=== PATIENT | female | born 1930 | race Caucasian/White ===

== ENCOUNTER 2017-05-29 14:31 | Inpatient (IN) | payer MEDICARE, MEDICAID ==
[~2017-05-29] VITALS: Ht 157.5 cm; Wt 84.8 kg
[~2017-05-29 14:31] MED LIST: AMLO2.5T PO; ASPI-605 PO; ATOR40TA PO; Docusate Sodium PO; ENOX40DI SQ; ESOM40CA PO; GABA-532 PO; METF500T4 PO; MONT10TA22 PO; RAMI10CA PO; SPIR25TA4 PO; TIMO5DRO18 EACHEYE
[2017-05-29 17:04] LABS: BASOPHILS % (AUTO) 0.3 % (0.0-2.0); EOSINOPHILS % (AUTO) 0.1 % (0.0-7.0); HEMATOCRIT 41.6 % (31.2-41.9); HEMOGLOBIN 13.9 g/dL (10.9-14.3); LYMPHOCYTES # (AUTO) 2.5 K/uL (20.0-40.0); LYMPHOCYTES % (AUTO) 18.6 % (20.5-51.5); MEAN CORPUSCULAR HGB CONC 34 g/dL (32.3-35.6); MEAN CORPUSCULAR VOLUME 86.7 fL (75.5-95.3); MONOCYTES # (AUTO) 1.1 K/uL (2.0-10.0); MONOCYTES % (AUTO) 8.5 % (0.0-11.0); NEUTROPHILS # (AUTO) 9.7 K/uL (1.8-8.9); NEUTROPHILS % (AUTO) 72.5 % (38.5-71.5); PLATELET COUNT (AUTO) 308 K/uL (179-408); WHITE BLOOD COUNT (AUTO) 13.4 K/uL (3.8-11.8)
[2017-05-29 17:19] LABS: ALANINE AMINOTRANSFERASE 22 U/L (14-59); ALKALINE PHOSPHATASE 73 U/L (50-136); ASPARTATE AMINOTRANSFERASE 9 U/L (15-37); BILIRUBIN,DIRECT 0.1 mg/dL (0.0-0.2); BILIRUBIN,TOTAL 0.3 mg/dL (0.2-1.0); CARBON DIOXIDE 30 mmol/L (21-32); CHLORIDE 104 mmol/L (98-107); CREATININE 1.5 mg/dL (0.6-1.3); GLUCOSE 128 mg/dL (74-106); TOTAL PROTEIN, SERUM 6.8 g/dL (6.4-8.2); UREA NITROGEN, BLOOD 30 mg/dL (7-18)
[2017-05-29] MEDS ORDERED: GUAI600T53 PO (17:26)
[2017-05-29] MEDS ORDERED: COLC0.6T67 PO (17:26)
[2017-05-29] MEDS ORDERED: CETI10TA14 PO (17:26)
[2017-05-29] MEDS ORDERED: FLUC100T8 PO (17:26)
[2017-05-29] MEDS ORDERED: PRED20TA PO (17:26)
[2017-05-29] MEDS ORDERED: FAMO40TA7 PO (17:26)
[2017-05-29] MEDS ORDERED: SERT25TA PO (17:26)
[2017-05-29] MEDS ORDERED: UMEC1BLS IH (17:26)
[2017-05-29] MEDS ORDERED: IPRA0.2S48 IH (17:26)
[2017-05-29] MEDS ORDERED: CLOP75TA15 PO (17:26)
[2017-05-29] MEDS ORDERED: MONT10TA22 PO (17:26)
[2017-05-29] MEDS ORDERED: CLOB15CR4 TP (17:26)
[2017-05-29] MEDS ORDERED: LEVO500T2 PO (17:26)
[2017-05-29] MEDS ORDERED: NEBI5TAB8 PO (17:26)
[2017-05-29] MEDS ORDERED: NYST5ORA PO (17:26)
[2017-05-29] MEDS ORDERED: IPRATROPIUM BROMIDE 0.5 MG/2.5 ML NEBU NEB ONE (18:21)
[2017-05-29] MEDS ORDERED: CEFTRIAXONE 1 G in IV DEXTROSE 5% 50 ML IV ONE (18:21)
[2017-05-29] MEDS ORDERED: methylPREDNISolone SOD SUCC 125 MG/2 ML VIAL IV ONE (18:21)
[2017-05-29] MEDS ORDERED: ALBUTEROL SULFATE 2.5 MG/ 0.5 ML NEBU NEB ONE (18:30)
[2017-05-29] MEDS ORDERED: CEFTRIAXONE 1 G VIAL ONE (18:45)
[2017-05-29] MEDS ORDERED: methylPREDNISolone SOD SUCC 125 MG/2 ML VIAL ONE (18:45)
[2017-05-29] MEDS ORDERED: IPRATROPIUM BROMIDE 0.5 MG/2.5 ML NEBU ONE (18:54)
[2017-05-29] MEDS ORDERED: ALBUTEROL SULFATE 2.5 MG/ 0.5 ML NEBU ONE (18:54)
--- NOTE | 2017-05-29 20:45 | NUR ---
Pt. admitted to TELE, under care of Dr. Mcgarry Belongs List completed
--- NOTE | 2017-05-29 20:55 | NUR ---
Received patient from ER via gurney, accompanied by granddaughter Mackenzie. Pt is alert, Andorran speaking, in no distress. Pt is admitted to tele under the care of Dr. Mcgarry. Dx: Pneumonia. Belonging list done. Admission process and care plan initiated. Safety measures in place, call light within reach. Will call MD for new admission orders. Addendum: 05/30/17 at 0443 by MAYDA SANDS RN Add: Patient's own medications accounted and placed in medication bag, will turn over to pharmacy when it opens at 0700 tomorrow.
[2017-05-29 21:37] VITALS: BP 144/61
[2017-05-29] MEDS ORDERED: DEXTROSE 50% 50 ML DISP.SYRIN IV PRN (23:15)
[2017-05-30 00:56] VITALS: BP 155/51
[2017-05-30 00:58] VITALS: BP 155/51
[2017-05-30 04:00] VITALS: BP 116/43
--- NOTE | 2017-05-30 06:00 | NUR ---
Pt is on tele sinus clifford/sinus rhythm mid 50's to low 60's. Lowest heart rate recorded at 45bpm but non sustained. Pt is in no distress.
--- NOTE | 2017-05-30 06:00 | NUR ---
Pt slept well, in no acute distress, no SOB, no c/o chest pain. Frequent productive cough noted. Accuchecks as ordered. Patient's own medications will be turned over to pharmacy, endorsed to day shift RN. Call light within reach, will continue to monitor.
[2017-05-30] MEDS: BLOOD SUGAR DIAGNOSTIC 1 EACH STRIP VI SCH ×4 (06:30→21:34)
--- NOTE | 2017-05-30 07:00 | NUR ---
RECEIVED REPORT FROM [facility] SHIFT NURSE, PATIENT IN BED ASLEEP, NO EVIDENCE OF DISTRESS NOTED AT THIS TIME, BED IN LOW POSITION, SIDE RAILS UP X2. BED ALARM ON.
[2017-05-30] MEDS: CLOPIDOGREL 75 MG TABLET PO SCH (09:02)
[2017-05-30] MEDS: SERTRALINE HCL 50 MG TABLET PO SCH (09:02)
[2017-05-30] MEDS: TIMOLOL MALEATE 0.5% OPHT DROP 5 ML BOTTLE EACHEYE SCH ×2 (09:02→21:13)
[2017-05-30] MEDS: MONTELUKAST SODIUM 10 MG TABLET PO SCH (09:02)
[2017-05-30] MEDS: INSULIN REGULAR, HUMAN 300 UNIT/3 ML VIAL SQ PRN ×3 (09:05→17:52)
[2017-05-30 11:19] VITALS: BP 114/47
[2017-05-30 11:36] LABS: *BILIRUBIN,URIN NEGATIVE (NEGATIVE); *BLOOD, URINE 1+ (NEGATIVE); *CLARITY,URINE TURBID (CLEAR); *COLOR,URINE LIGHT YELLOW (YELLOW); *KETONES,URINE NEGATIVE (NEGATIVE); *PROTEIN,URINE NEGATIVE (NEGATIVE); *UROBILINOGEN,URINE 0.2 E.U./dl (NORMAL); LEUKOCYTE ESTERASE ,URINE 3+ (NEGATIVE); NITRITE, URINE NEGATIVE (NEGATIVE); PH,URINE 6.5 (5.0-8.0); UGLUCOSE NEGATIVE (NEGATIVE)
[2017-05-30] MEDS ORDERED: MORPHINE SULFATE 4 MG/1 ML DISP.SYRIN IV PRN (12:15)
[2017-05-30] MEDS ORDERED: ALBUTEROL SULFATE 2.5 MG/3 ML NEBU NEB PRN (12:15)
[2017-05-30] MEDS ORDERED: ACETAMINOPHEN 325 MG TABLET PO PRN (12:15)
[2017-05-30] MEDS ORDERED: ONDANSETRON 4 MG/2 ML VIAL IV PRN (12:15)
[2017-05-30 12:21] LABS: BACTERIA,URINE FEW /HPF (NONE SEEN); WBC,URINE 50-80 /HPF (0-3)
[2017-05-30 12:22] LABS: SQUAMOUS EPITHELIAL CELL,UR MANY /HPF (NONE SEEN); TRANSITIONAL EPI CELLS,URINE MODERATE /LPF (NONE SEEN)
[2017-05-30] MEDS: AZITHROMYCIN IV 500 MG in IV DEXTROSE 5% 250 ML IV SCH (14:06)
[2017-05-30 15:52] VITALS: BP 131/48
--- NOTE | 2017-05-30 18:50 | NUR ---
Patient has been compliant with care today. She is transferring from bed to chair with assistance and makes needs known. Good consumption of meals, and glucose levels are mildly rising. Patient is in chair at this time, no evidence of distress noted, call light in reach.
[2017-05-30 20:00] VITALS: BP 146/39
[2017-05-30] MEDS: DOCUSATE SODIUM 100 MG CAPSULE PO SCH (21:12)
[2017-05-30] MEDS: NYSTATIN SUSPENSION 5 ML LIQUID UDC PO SCH (21:12)
[2017-05-30] MEDS: CEFTRIAXONE 1 G in IV DEXTROSE 5% 50 ML IV SCH (21:12)
[2017-05-31 06:02] VITALS: BP 134/59
[2017-05-31] MEDS: PANTOPRAZOLE SODIUM 40 MG TABLET.DR PO SCH (06:29)
[2017-05-31] MEDS: BLOOD SUGAR DIAGNOSTIC 1 EACH STRIP VI SCH ×4 (06:35→20:48)
--- NOTE | 2017-05-31 06:41 | NUR ---
Patient slept well, in no distress. No significant change of condition throughout the shift. Assisted patient with toileting needs, all needs met. Safety measures in place, call light within reach.
--- NOTE | 2017-05-31 07:13 | NUR ---
RECEIVED REPORT FROM [employer] OPERATOR NURSE, PATIENT IN BED ASLEEP, NO EVIDENCE OF DISTRESS NOTED, BED IN LOW POSITION, SIDE RAILS UP X2. BED ALARM ON.
[2017-05-31 07:25] LABS: IRON, SERUM 83 ug/dL (50-175)
[2017-05-31 07:33] LABS: BASOPHILS % (AUTO) 0.1 % (0.0-2.0); EOSINOPHILS % (AUTO) 0.2 % (0.0-7.0); HEMATOCRIT 39.5 % (31.2-41.9); HEMOGLOBIN 13.1 g/dL (10.9-14.3); LYMPHOCYTES # (AUTO) 2.7 K/uL (20.0-40.0); LYMPHOCYTES % (AUTO) 21.8 % (20.5-51.5); MEAN CORPUSCULAR HEMOGLOBIN 28.7 uug (24.7-32.8); MEAN CORPUSCULAR HGB CONC 33 g/dL (32.3-35.6); MEAN CORPUSCULAR VOLUME 86.5 fL (75.5-95.3); MONOCYTES # (AUTO) 0.9 K/uL (2.0-10.0); MONOCYTES % (AUTO) 7.1 % (0.0-11.0); NEUTROPHILS # (AUTO) 8.7 K/uL (1.8-8.9); NEUTROPHILS % (AUTO) 70.8 % (38.5-71.5); PLATELET COUNT (AUTO) 304 K/uL (179-408); RED BLOOD CELL COUNT(AUTO) 4.56 MIL/uL (3.63-4.92); WHITE BLOOD COUNT (AUTO) 12.3 K/uL (3.8-11.8)
[2017-05-31 07:40] LABS: ALANINE AMINOTRANSFERASE 21 U/L (14-59); ALKALINE PHOSPHATASE 65 U/L (50-136); BILIRUBIN,TOTAL 0.4 mg/dL (0.2-1.0); CARBON DIOXIDE 29 mmol/L (21-32); CHLORIDE 102 mmol/L (98-107); CHOLESTEROL 121 mg/dL (<200); CREATININE 1.2 mg/dL (0.6-1.3); GLUCOSE 118 mg/dL (74-106); HDL CHOLESTEROL 55 mg/dL (40-60); MAGNESIUM 1.7 mg/dL (1.8-2.4); PHOSPHOROUS 3.4 mg/dL (2.5-4.9); POTASSIUM 4.1 mmol/L (3.5-5.1); THYROID STIMULATING HORMONE 0.711 mIU/mL (0.358-3.740); TOTAL PROTEIN, SERUM 5.9 g/dL (6.4-8.2); TRIGLYCERIDES 123 MG/DL (30-150); UREA NITROGEN, BLOOD 28 mg/dL (7-18)
[2017-05-31 08:08] LABS: ASPARTATE AMINOTRANSFERASE 14 U/L (15-37)
[2017-05-31] MEDS: MONTELUKAST SODIUM 10 MG TABLET PO SCH (09:21)
[2017-05-31] MEDS: SERTRALINE HCL 50 MG TABLET PO SCH (09:21)
[2017-05-31] MEDS: CLOPIDOGREL 75 MG TABLET PO SCH (09:22)
[2017-05-31] MEDS: TIMOLOL MALEATE 0.5% OPHT DROP 5 ML BOTTLE EACHEYE SCH ×2 (09:22→20:51)
[2017-05-31] MEDS: NYSTATIN SUSPENSION 5 ML LIQUID UDC PO SCH ×4 (09:22→20:40)
[2017-05-31 11:26] VITALS: BP 100/46
[2017-05-31] MEDS ORDERED: MAGNESIUM OXIDE 400 MG TABLET PO ONE (11:45)
[2017-05-31] MEDS: AZITHROMYCIN IV 500 MG in IV DEXTROSE 5% 250 ML IV SCH (13:05)
[2017-05-31 13:28] LABS: *CREATININE,URINE 38.7 mg/dL (30-125); *URINE TOTAL PROTEIN RANDOM 23.1 mg/dL (<150/24HR)
[2017-05-31 15:12] VITALS: BP 92/45
--- NOTE | 2017-05-31 17:42 | NUR ---
PATIENT HAS BEEN COMPLIANT WITH CARE, CURRENTLY UP IN CHAIR, NO EVIDENCE OF DISTRESS NOTED. PATIENT REQUESTS WARM WATER SEVERAL TIMES A DAY AND CALLS FOR [facility] TENDER WITH AMBULATION TO RESTROOM. PATIENT REPORTS FEELING BETTER TODAY. URINE CLEAN CATCH STILL PENDING AT THIS TIME ORDERS WERE PLACED AFTER PATIENT HAD URINATED.
[2017-05-31 20:00] VITALS: BP 116/67
--- NOTE | 2017-05-31 20:30 | NUR ---
patient up to chair,no respiratory distress, patient has been coughing productively,R.T. give breathing treatment,warm water given per patient requested,daughter at bedside,no SOB noted,o2 sat97% in room air.
[2017-05-31] MEDS: CEFTRIAXONE 1 G in IV DEXTROSE 5% 50 ML IV SCH (20:39)
[2017-05-31] MEDS: DOCUSATE SODIUM 100 MG CAPSULE PO SCH (20:40)
[2017-05-31] MEDS: INSULIN REGULAR, HUMAN 300 UNIT/3 ML VIAL SQ PRN (20:51)
[2017-05-31] MEDS: ALBUTEROL SULFATE 2.5 MG/3 ML NEBU NEB PRN (21:13)
[2017-06-01 05:57] VITALS: BP 111/51
--- NOTE | 2017-06-01 06:00 | NUR ---
PATIENT ABLE TO SLEEP FOR 4-5 HRS ,COUGH IMPROVED,ROBITUSSIN DM 10 ML GIVEN.
[2017-06-01] MEDS: BLOOD SUGAR DIAGNOSTIC 1 EACH STRIP VI SCH ×2 (06:33→11:57)
[2017-06-01] MEDS: PANTOPRAZOLE SODIUM 40 MG TABLET.DR PO SCH (06:34)
[2017-06-01] MEDS: GUAIFENESIN/DEXTROMETHORPHAN 5 ML UDC PO PRN ×2 (06:40→13:41)
[2017-06-01] MEDS ORDERED: GUAIFENESIN/DEXTROMETHORPHAN 5 ML UDC ONE (06:55)
--- NOTE | 2017-06-01 08:00 | NUR ---
Awake, alert oriented x 4, Uzbek speaking, understands simple Pashto, STANDING ROCK, blind. Pleasant, assisted with ADL, then sitting on the chair
[2017-06-01] MEDS: NYSTATIN SUSPENSION 5 ML LIQUID UDC PO SCH ×2 (08:46→13:39)
[2017-06-01] MEDS: TIMOLOL MALEATE 0.5% OPHT DROP 5 ML BOTTLE EACHEYE SCH (08:46)
[2017-06-01] MEDS: CLOPIDOGREL 75 MG TABLET PO SCH (08:46)
[2017-06-01] MEDS: SERTRALINE HCL 50 MG TABLET PO SCH (08:46)
[2017-06-01] MEDS: MONTELUKAST SODIUM 10 MG TABLET PO SCH (08:46)
[2017-06-01 08:49] LABS: BASOPHILS % (AUTO) 0.2 % (0.0-2.0); EOSINOPHILS # (AUTO) 0.1 K/uL (0.0-0.7); EOSINOPHILS % (AUTO) 0.7 % (0.0-7.0); HEMATOCRIT 44.7 % (31.2-41.9); HEMOGLOBIN 14.6 g/dL (10.9-14.3); LYMPHOCYTES # (AUTO) 3.3 K/uL (20.0-40.0); LYMPHOCYTES % (AUTO) 28.1 % (20.5-51.5); MEAN CORPUSCULAR HEMOGLOBIN 28.4 uug (24.7-32.8); MEAN CORPUSCULAR HGB CONC 33 g/dL (32.3-35.6); MEAN CORPUSCULAR VOLUME 86.8 fL (75.5-95.3); MONOCYTES # (AUTO) 0.7 K/uL (2.0-10.0); NEUTROPHILS # (AUTO) 7.7 K/uL (1.8-8.9); PLATELET COUNT (AUTO) 276 K/uL (179-408); RED BLOOD CELL COUNT(AUTO) 5.15 MIL/uL (3.63-4.92); WHITE BLOOD COUNT (AUTO) 11.9 K/uL (3.8-11.8)
[2017-06-01 08:58] LABS: CARBON DIOXIDE 30 mmol/L (21-32); CHLORIDE 100 mmol/L (98-107); CREATININE 1.2 mg/dL (0.6-1.3); GLUCOSE 107 mg/dL (74-106); PHOSPHOROUS 3.4 mg/dL (2.5-4.9); POTASSIUM 4.1 mmol/L (3.5-5.1); UREA NITROGEN, BLOOD 28 mg/dL (7-18)
--- NOTE | 2017-06-01 11:00 | NUR ---
Assisted by PT, ambulating in the hallway.
[2017-06-01 11:09] VITALS: BP 101/44
[2017-06-01] MEDS: AZITHROMYCIN IV 500 MG in IV DEXTROSE 5% 250 ML IV SCH (13:39)
[2017-06-01] MEDS ORDERED: FOSFOMYCIN TROMETHAMINE 3 GM PACKET PO ONE (14:15)
[2017-06-01] MEDS ORDERED: LINEZOLID 600 MG TABLET PO SCH (14:15)
[2017-06-01] MEDS ORDERED: ACETYLCYSTEINE 10% 4ML VIAL NEB ONE (14:49)
[2017-06-01] MEDS ORDERED: GUAIFENESIN LA 600 MG TABLET.SA PO SCH (15:00)
[2017-06-01] MEDS ORDERED: NITROFURANTOIN/NITROFURAN MAC 100 MG CAPSULE PO SCH (15:00)
[2017-06-01 15:19] VITALS: BP_SYST 101; BP_SYST 116; BP_DIAS 44; BP_DIAS 51
[2017-06-01] MEDS: ALBUTEROL SULFATE 2.5 MG/3 ML NEBU NEB PRN (15:28)
[2017-06-01] MEDS ORDERED: LEVO500T2 PO (16:08)
[2017-06-01] MEDS ORDERED: NITR100C6 PO (16:08)
[2017-06-01] MEDS ORDERED: NEOMY/BACITRAC/POLYMI OINT 28.35 GM TUBE TOP SCH (17:00)
--- NOTE | 2017-06-01 17:05 | NUR ---
With discharge order to Assisted living, arranged with [facility]. Prescription and DC instruction given to daughter Melissa, verbalized understanding. Saline lock removed. Own medications returned. Went home per wheelchair in fair condition not in distress, afebrile.
--- NOTE | 2017-06-01 17:09 | NUR ---
Patient is discharged to home with home health continued with [facility]
[2017-06-01] MEDS ORDERED: LACTOBACILLUS RHAMNOSUS GG 1 EACH CAPSULE PO SCH (21:00)
== END 2017-06-01 17:00 | disposition home health service (06) | DRG 871 ==
LOC: ER 14:32 → TELE 20:42 → MED 05-30 11:00
PROVIDERS: ADMIT Internal Medicine; ATTEND Internal Medicine
DX: A41.9 Sepsis, unspecified organism (principal); J15.9 Unspecified bacterial pneumonia; N17.0 Acute kidney failure with tubular necrosis; E44.0 Moderate protein-calorie malnutrition; E11.42 Type 2 diabetes mellitus with diabetic polyneuropathy; D68.59 Other primary thrombophilia; B37.0 Candidal stomatitis; J44.0 Chronic obstructive pulmonary disease with (acute) lower respiratory infection; J45.901 Unspecified asthma with (acute) exacerbation; N39.0 Urinary tract infection, site not specified; E11.65 Type 2 diabetes mellitus with hyperglycemia; B95.2 Enterococcus as the cause of diseases classified elsewhere; Z79.84 Long term (current) use of oral hypoglycemic drugs; Z79.52 Long term (current) use of systemic steroids; Z79.82 Long term (current) use of aspirin; K21.9 Gastro-esophageal reflux disease without esophagitis; Z68.34 Body mass index [BMI] 34.0-34.9, adult; Z86.73 Personal history of transient ischemic attack (TIA), and cerebral infarction without residual deficits; H54.7 Unspecified visual loss; Z74.09 Other reduced mobility; I11.9 Hypertensive heart disease without heart failure; Z79.899 Other long term (current) drug therapy; K43.9 Ventral hernia without obstruction or gangrene; Z88.0 Allergy status to penicillin
CPT/HCPCS: 36415; 70030-TC; 71045; 83550; 83605; 83735; 84100; 84156; 84300; 84443; 85025; 85730; 87040; 87077; 87086; 87400; 93005; 93307; 94640; 94664; A4663; J0456; J0696; J1815; J2930; J3490; J3590; J7060

== ENCOUNTER 2018-12-01 19:59 | Inpatient (IN) | payer MEDICARE, MEDICAID ==
[~2018-12-01] VITALS: Ht 170.2 cm; Wt 82.6 kg
[~2018-12-01 19:59] MED LIST changes: -AMLO2.5T PO; -ASPI-605 PO; -ATOR40TA PO; +CETI10TA14 PO; +CLOB15CR4 TP; +CLOP75TA15 PO; +COLC0.6T67 PO; -Docusate Sodium PO; -ENOX40DI SQ; +IPRA0.2S48 IH; +LEVO500T2 PO; +METF-440 PO; -METF500T4 PO; +NEBI5TAB8 PO; +NITR100C6 PO; +NYST5ORA PO; +PRED20TA PO; -RAMI10CA PO; +SERT25TA PO; -SPIR25TA4 PO; +UMEC1BLS IH
[2018-12-01 20:43] LABS: BASOPHILS # (AUTO) 0.1 K/uL (0.0-8.0); BASOPHILS % (AUTO) 0.6 % (0.0-2.0); EOSINOPHILS # (AUTO) 0.1 K/uL (0.0-0.7); EOSINOPHILS % (AUTO) 1.4 % (0.0-7.0); HEMATOCRIT 39.5 % (31.2-41.9); LYMPHOCYTES # (AUTO) 2.7 K/uL (20.0-40.0); MEAN CORPUSCULAR HEMOGLOBIN 28.2 uug (24.7-32.8); MEAN CORPUSCULAR HGB CONC 33 g/dL (32.3-35.6); MEAN CORPUSCULAR VOLUME 85.5 fL (75.5-95.3); MONOCYTES # (AUTO) 0.6 K/uL (2.0-10.0); MONOCYTES % (AUTO) 6.5 % (0.0-11.0); NEUTROPHILS # (AUTO) 5.8 K/uL (1.8-8.9); NEUTROPHILS % (AUTO) 62.5 % (38.5-71.5); PLATELET COUNT (AUTO) 279 K/uL (179-408); RED BLOOD CELL COUNT(AUTO) 4.62 MIL/uL (3.63-4.92); WHITE BLOOD COUNT (AUTO) 9.3 K/uL (3.8-11.8)
[2018-12-01 20:50] LABS: CARBON DIOXIDE 29 mmol/L (21-32); CHLORIDE 107 mmol/L (98-107); CREATININE 1.2 mg/dL (0.6-1.3); GLUCOSE 113 mg/dL (74-106); POTASSIUM 4.2 mmol/L (3.5-5.1); UREA NITROGEN, BLOOD 22 mg/dL (7-18)
[2018-12-01 21:18] LABS: BILIRUBIN,DIRECT 0.1 mg/dL (0.0-0.2); BILIRUBIN,TOTAL 0.3 mg/dL (0.2-1.0); TOTAL PROTEIN, SERUM 6.1 g/dL (6.4-8.2)
[2018-12-01 21:22] LABS: *BILIRUBIN,URIN NEGATIVE (NEGATIVE); *BLOOD, URINE NEGATIVE (NEGATIVE); *CLARITY,URINE CLEAR (CLEAR); *KETONES,URINE NEGATIVE (NEGATIVE); *UROBILINOGEN,URINE 0.2 E.U./dl (NORMAL); LEUKOCYTE ESTERASE ,URINE NEGATIVE (NEGATIVE); NITRITE, URINE NEGATIVE (NEGATIVE); PH,URINE 5.5 (5.0-8.0); UGLUCOSE NEGATIVE (NEGATIVE)
[2018-12-01 21:28] LABS: *COLOR,URINE LIGHT YELLOW (YELLOW)
[2018-12-01] MEDS ORDERED: LORAZEPAM 2 MG/1 ML VIAL IV ONE (21:30)
[2018-12-01] MEDS ORDERED: PROCHLORPERAZINE EDISYLATE 10 MG/2 ML VIAL IV ONE (21:30)
[2018-12-01] MEDS ORDERED: PROCHLORPERAZINE EDISYLATE 10 MG/2 ML VIAL ONE (21:40)
[2018-12-01] MEDS ORDERED: LORAZEPAM 2 MG/1 ML VIAL ONE (21:41)
[2018-12-01] MEDS ORDERED: INSULIN REGULAR, HUMAN 300 UNIT/3 ML VIAL SQ PRN (23:00)
[2018-12-01] MEDS ORDERED: ONDANSETRON 4 MG/2 ML VIAL IV PRN (23:00)
[2018-12-01] MEDS ORDERED: HYDROCODONE/APAP 5-325MG TABLET PO PRN (23:00)
[2018-12-01] MEDS ORDERED: Z GUARD REMEDY PASTE 57 GM TUBE TOP PRN (23:00)
[2018-12-01] MEDS ORDERED: DEXTROSE 50% 50 ML DISP.SYRIN IV PRN (23:00)
[2018-12-01] MEDS ORDERED: ASPIRIN 81 MG TAB.CHEW PO ONE (23:00)
[2018-12-01] MEDS ORDERED: ACETAMINOPHEN 325 MG TABLET PO PRN (23:00)
[2018-12-01] MEDS ORDERED: ASPIRIN 81 MG TAB.CHEW ONE (23:07)
[2018-12-02 00:03] VITALS: BP 167/59
[2018-12-02] MEDS: IV NS 1000 ML 1,000 ML IV PRN ×2 (01:23→18:08)
[2018-12-02 04:00] VITALS: BP 125/62
[2018-12-02 06:32] LABS: BASOPHILS % (AUTO) 0.4 % (0.0-2.0); EOSINOPHILS # (AUTO) 0.2 K/uL (0.0-0.7); EOSINOPHILS % (AUTO) 2.2 % (0.0-7.0); HEMATOCRIT 38.6 % (31.2-41.9); HEMOGLOBIN 12.7 g/dL (10.9-14.3); LYMPHOCYTES # (AUTO) 2.3 K/uL (20.0-40.0); LYMPHOCYTES % (AUTO) 32.2 % (20.5-51.5); MEAN CORPUSCULAR HEMOGLOBIN 28.1 uug (24.7-32.8); MEAN CORPUSCULAR HGB CONC 33 g/dL (32.3-35.6); MEAN CORPUSCULAR VOLUME 85.5 fL (75.5-95.3); MONOCYTES # (AUTO) 0.6 K/uL (2.0-10.0); MONOCYTES % (AUTO) 8.3 % (0.0-11.0); NEUTROPHILS % (AUTO) 56.9 % (38.5-71.5); PLATELET COUNT (AUTO) 272 K/uL (179-408); RED BLOOD CELL COUNT(AUTO) 4.52 MIL/uL (3.63-4.92); WHITE BLOOD COUNT (AUTO) 7.1 K/uL (3.8-11.8)
[2018-12-02 06:33] LABS: CARBON DIOXIDE 28 mmol/L (21-32); CHLORIDE 108 mmol/L (98-107); CREATININE 1.1 mg/dL (0.6-1.3); GLUCOSE 115 mg/dL (74-106); POTASSIUM 4.2 mmol/L (3.5-5.1); UREA NITROGEN, BLOOD 19 mg/dL (7-18)
[2018-12-02 06:38] LABS: MAGNESIUM 1.5 mg/dL (1.8-2.4); PHOSPHOROUS 3.5 mg/dL (2.5-4.9)
[2018-12-02 06:46] LABS: ALANINE AMINOTRANSFERASE 10 U/L (14-59); ALKALINE PHOSPHATASE 53 U/L (50-136); ASPARTATE AMINOTRANSFERASE 6 U/L (15-37); BILIRUBIN,TOTAL 0.4 mg/dL (0.2-1.0); TOTAL PROTEIN, SERUM 5.6 g/dL (6.4-8.2)
[2018-12-02 07:27] LABS: THYROID STIMULATING HORMONE 2.815 mIU/mL (0.358-3.740)
[2018-12-02] MEDS: BLOOD SUGAR DIAGNOSTIC 1 EACH STRIP VI SCH ×4 (07:40→21:03)
[2018-12-02 09:22] VITALS: BP 149/50
[2018-12-02] MEDS: ASPIRIN 81 MG TAB.CHEW PO SCH (09:29)
[2018-12-02 11:06] VITALS: BP 111/54
[2018-12-02] MEDS ORDERED: AMLO5TAB9 PO (11:46)
[2018-12-02] MEDS ORDERED: AMLO2.5T4 PO (11:46)
[2018-12-02] MEDS ORDERED: OLOP2.5D5 OP (11:46)
[2018-12-02] MEDS ORDERED: LIDOC TOP (11:46)
[2018-12-02] MEDS ORDERED: TIMO5DRO18 EACHEYE (11:46)
[2018-12-02] MEDS ORDERED: FAMO40TA7 PO (11:46)
[2018-12-02] MEDS ORDERED: FURO-152 PO (11:46)
[2018-12-02] MEDS ORDERED: TOBR5DRO48 EACHEYE (11:46)
[2018-12-02] MEDS ORDERED: DEXL60CA3 PO (11:46)
[2018-12-02] MEDS ORDERED: NYST15PO4 TP (11:46)
[2018-12-02] MEDS ORDERED: AZEL137S7 BNOSTRILS (11:46)
[2018-12-02] MEDS ORDERED: DICL100G16 TP (11:46)
[2018-12-02] MEDS ORDERED: ALBU18HF2 INH (11:46)
[2018-12-02] MEDS: MAGNESIUM SULFATE/D5W 100 ML IV SCH ×2 (12:00→13:23)
[2018-12-02] MEDS: GABAPENTIN 100 MG CAPSULE PO SCH ×2 (13:46→17:42)
[2018-12-02] MEDS: FUROSEMIDE 20 MG TABLET PO SCH (13:46)
[2018-12-02] MEDS: CLOPIDOGREL 75 MG TABLET PO SCH (13:46)
[2018-12-02] MEDS: MONTELUKAST SODIUM 10 MG TABLET PO SCH (13:46)
[2018-12-02 15:09] VITALS: BP 146/81
[2018-12-02] MEDS: TIMOLOL MALEATE 0.5% OPHT DROP 5 ML BOTTLE EACHEYE SCH ×2 (15:12→20:59)
[2018-12-02] MEDS: METFORMIN HCL 500 MG TABLET PO SCH (17:41)
[2018-12-02 20:00] VITALS: BP 108/72
[2018-12-02] MEDS: ATORVASTATIN 10 MG TABLET PO SCH (20:58)
[2018-12-02] MEDS: NYSTATIN POWDER 15 GM BOTTLE TOP SCH (20:58)
[2018-12-03 04:58] VITALS: BP 141/61
[2018-12-03] MEDS: BLOOD SUGAR DIAGNOSTIC 1 EACH STRIP VI SCH ×4 (05:57→20:46)
[2018-12-03 06:40] LABS: CARBON DIOXIDE 29 mmol/L (21-32); CHLORIDE 105 mmol/L (98-107); GLUCOSE 124 mg/dL (74-106); MAGNESIUM 1.6 mg/dL (1.8-2.4); PHOSPHOROUS 3.3 mg/dL (2.5-4.9); UREA NITROGEN, BLOOD 19 mg/dL (7-18)
[2018-12-03 06:57] LABS: BASOPHILS % (AUTO) 0.3 % (0.0-2.0); EOSINOPHILS # (AUTO) 0.4 K/uL (0.0-0.7); EOSINOPHILS % (AUTO) 3.6 % (0.0-7.0); HEMATOCRIT 39.4 % (31.2-41.9); HEMOGLOBIN 12.9 g/dL (10.9-14.3); LYMPHOCYTES # (AUTO) 2.3 K/uL (20.0-40.0); MEAN CORPUSCULAR HEMOGLOBIN 28.1 uug (24.7-32.8); MEAN CORPUSCULAR HGB CONC 33 g/dL (32.3-35.6); MONOCYTES # (AUTO) 0.8 K/uL (2.0-10.0); MONOCYTES % (AUTO) 7.5 % (0.0-11.0); NEUTROPHILS # (AUTO) 6.7 K/uL (1.8-8.9); NEUTROPHILS % (AUTO) 65.6 % (38.5-71.5); PLATELET COUNT (AUTO) 275 K/uL (179-408); RED BLOOD CELL COUNT(AUTO) 4.58 MIL/uL (3.63-4.92); WHITE BLOOD COUNT (AUTO) 10.2 K/uL (3.8-11.8)
[2018-12-03] MEDS: IV NS 1000 ML 1,000 ML IV PRN (07:54)
[2018-12-03] MEDS: CETIRIZINE HCL 10 MG TABLET PO SCH (08:42)
[2018-12-03] MEDS: MONTELUKAST SODIUM 10 MG TABLET PO SCH (08:42)
[2018-12-03] MEDS: CLOPIDOGREL 75 MG TABLET PO SCH (08:42)
[2018-12-03] MEDS: METFORMIN HCL 500 MG TABLET PO SCH ×2 (08:42→17:45)
[2018-12-03] MEDS: AMLODIPINE 5 MG TABLET PO SCH (08:46)
[2018-12-03] MEDS: FUROSEMIDE 20 MG TABLET PO SCH (08:47)
[2018-12-03] MEDS: ASPIRIN 81 MG TAB.CHEW PO SCH (08:47)
[2018-12-03] MEDS: NYSTATIN POWDER 15 GM BOTTLE TOP SCH (08:50)
[2018-12-03] MEDS: TIMOLOL MALEATE 0.5% OPHT DROP 5 ML BOTTLE EACHEYE SCH ×2 (09:51→20:46)
[2018-12-03 11:10] VITALS: BP 154/66
[2018-12-03] MEDS ORDERED: PANTOPRAZOLE SODIUM 40 MG VIAL IV SCH (12:45)
[2018-12-03] MEDS: MAGNESIUM SULFATE/D5W 100 ML IV SCH ×2 (12:48→14:32)
[2018-12-03] MEDS: FAMOTIDINE. 20 MG/2 ML VIAL IV SCH ×2 (12:48→20:46)
[2018-12-03 15:21] VITALS: BP 114/49
[2018-12-03] MEDS: CLOTRIMAZOLE 1% CREAM 30 GM TUBE TOP SCH (17:46)
[2018-12-03 20:12] VITALS: BP 118/69
[2018-12-03] MEDS: ATORVASTATIN 10 MG TABLET PO SCH (20:46)
[2018-12-03] MEDS ORDERED: INSULIN REGULAR, HUMAN 300 UNIT/3 ML VIAL SQ PRN (21:00)
[2018-12-04 05:06] VITALS: BP 130/65
[2018-12-04] MEDS ORDERED: INSULIN REGULAR, HUMAN 300 UNIT/3 ML VIAL SQ PRN (06:00)
[2018-12-04 06:37] LABS: BASOPHILS # (AUTO) 0.1 K/uL (0.0-8.0); BASOPHILS % (AUTO) 0.7 % (0.0-2.0); EOSINOPHILS # (AUTO) 0.4 K/uL (0.0-0.7); EOSINOPHILS % (AUTO) 4.5 % (0.0-7.0); HEMATOCRIT 42.7 % (31.2-41.9); HEMOGLOBIN 13.9 g/dL (10.9-14.3); LYMPHOCYTES # (AUTO) 1.9 K/uL (20.0-40.0); LYMPHOCYTES % (AUTO) 20.2 % (20.5-51.5); MEAN CORPUSCULAR HEMOGLOBIN 27.9 uug (24.7-32.8); MEAN CORPUSCULAR HGB CONC 33 g/dL (32.3-35.6); MEAN CORPUSCULAR VOLUME 85.5 fL (75.5-95.3); MONOCYTES # (AUTO) 0.9 K/uL (2.0-10.0); MONOCYTES % (AUTO) 8.9 % (0.0-11.0); NEUTROPHILS # (AUTO) 6.3 K/uL (1.8-8.9); NEUTROPHILS % (AUTO) 65.7 % (38.5-71.5); PLATELET COUNT (AUTO) 239 K/uL (179-408); RED BLOOD CELL COUNT(AUTO) 4.99 MIL/uL (3.63-4.92); WHITE BLOOD COUNT (AUTO) 9.5 K/uL (3.8-11.8)
[2018-12-04] MEDS: BLOOD SUGAR DIAGNOSTIC 1 EACH STRIP VI SCH ×5 (06:45→20:42)
[2018-12-04] MEDS: IV NS 1000 ML 1,000 ML IV PRN (06:53)
[2018-12-04 06:57] LABS: CARBON DIOXIDE 29 mmol/L (21-32); CHLORIDE 107 mmol/L (98-107); CREATININE 1.1 mg/dL (0.6-1.3); GLUCOSE 116 mg/dL (74-106); MAGNESIUM 1.9 mg/dL (1.8-2.4); PHOSPHOROUS 3.1 mg/dL (2.5-4.9); POTASSIUM 4.3 mmol/L (3.5-5.1); UREA NITROGEN, BLOOD 19 mg/dL (7-18)
[2018-12-04] MEDS: MONTELUKAST SODIUM 10 MG TABLET PO SCH (08:02)
[2018-12-04] MEDS: FAMOTIDINE. 20 MG/2 ML VIAL IV SCH (08:02)
[2018-12-04] MEDS: CLOPIDOGREL 75 MG TABLET PO SCH (08:02)
[2018-12-04] MEDS: METFORMIN HCL 500 MG TABLET PO SCH ×2 (08:05→17:50)
[2018-12-04] MEDS: AMLODIPINE 5 MG TABLET PO SCH (08:05)
[2018-12-04] MEDS: ASPIRIN 81 MG TAB.CHEW PO SCH (08:05)
[2018-12-04] MEDS: FUROSEMIDE 20 MG TABLET PO SCH (08:05)
[2018-12-04] MEDS: CETIRIZINE HCL 10 MG TABLET PO SCH (08:05)
[2018-12-04] MEDS: TIMOLOL MALEATE 0.5% OPHT DROP 5 ML BOTTLE EACHEYE SCH ×2 (08:31→20:39)
[2018-12-04] MEDS: CLOTRIMAZOLE 1% CREAM 30 GM TUBE TOP SCH ×2 (08:35→17:33)
[2018-12-04] MEDS: ALBUTEROL SULFATE 1.25 MG/3 ML NEBU NEB PRN ×3 (08:39→23:11)
[2018-12-04] MEDS: IPRATROPIUM BROMIDE 0.5 MG/2.5 ML NEBU NEB PRN ×3 (08:39→23:11)
[2018-12-04 08:47] VITALS: BP 155/67
[2018-12-04 11:07] VITALS: BP 125/51
[2018-12-04 15:34] VITALS: BP 141/61
[2018-12-04 20:18] VITALS: BP 111/57
[2018-12-04] MEDS: ATORVASTATIN 10 MG TABLET PO SCH (20:21)
[2018-12-04] MEDS: FAMOTIDINE 20 MG TABLET PO SCH (20:21)
[2018-12-04] MEDS: MAG HYDROX/AL HYDROX/SIMETH 30 ML LIQUID UDC PO PRN (21:07)
[2018-12-05] MEDS: ALBUTEROL SULFATE 1.25 MG/3 ML NEBU NEB PRN (04:41)
[2018-12-05] MEDS: IPRATROPIUM BROMIDE 0.5 MG/2.5 ML NEBU NEB PRN (04:43)
[2018-12-05 05:05] VITALS: BP 140/50
[2018-12-05 05:49] LABS: BASOPHILS # (AUTO) 0.1 K/uL (0.0-8.0); BASOPHILS % (AUTO) 0.7 % (0.0-2.0); EOSINOPHILS # (AUTO) 0.5 K/uL (0.0-0.7); EOSINOPHILS % (AUTO) 5.5 % (0.0-7.0); HEMATOCRIT 39.4 % (31.2-41.9); HEMOGLOBIN 12.9 g/dL (10.9-14.3); LYMPHOCYTES # (AUTO) 2.1 K/uL (20.0-40.0); LYMPHOCYTES % (AUTO) 22.4 % (20.5-51.5); MEAN CORPUSCULAR HEMOGLOBIN 28.1 uug (24.7-32.8); MEAN CORPUSCULAR HGB CONC 33 g/dL (32.3-35.6); MEAN CORPUSCULAR VOLUME 85.8 fL (75.5-95.3); MONOCYTES # (AUTO) 0.9 K/uL (2.0-10.0); MONOCYTES % (AUTO) 9.9 % (0.0-11.0); NEUTROPHILS # (AUTO) 5.8 K/uL (1.8-8.9); NEUTROPHILS % (AUTO) 61.5 % (38.5-71.5); PLATELET COUNT (AUTO) 252 K/uL (179-408); WHITE BLOOD COUNT (AUTO) 9.4 K/uL (3.8-11.8)
[2018-12-05] MEDS: BLOOD SUGAR DIAGNOSTIC 1 EACH STRIP VI SCH ×3 (06:32→16:40)
[2018-12-05 08:00] VITALS: BP 133/55
[2018-12-05] MEDS: CETIRIZINE HCL 10 MG TABLET PO SCH (08:11)
[2018-12-05] MEDS: METFORMIN HCL 500 MG TABLET PO SCH (08:11)
[2018-12-05] MEDS: CLOPIDOGREL 75 MG TABLET PO SCH (08:11)
[2018-12-05] MEDS: FAMOTIDINE 20 MG TABLET PO SCH (08:11)
[2018-12-05] MEDS: MONTELUKAST SODIUM 10 MG TABLET PO SCH (08:11)
[2018-12-05] MEDS: AMLODIPINE 5 MG TABLET PO SCH (08:12)
[2018-12-05] MEDS: CLOTRIMAZOLE 1% CREAM 30 GM TUBE TOP SCH ×2 (08:12→17:04)
[2018-12-05] MEDS: TIMOLOL MALEATE 0.5% OPHT DROP 5 ML BOTTLE EACHEYE SCH (08:12)
[2018-12-05 08:57] LABS: CREATININE 1.1 mg/dL (0.6-1.3); MAGNESIUM 1.7 mg/dL (1.8-2.4); PHOSPHOROUS 3.7 mg/dL (2.5-4.9)
[2018-12-05 08:58] LABS: CARBON DIOXIDE 28 mmol/L (21-32); CHLORIDE 104 mmol/L (98-107); GLUCOSE 116 mg/dL (74-106); POTASSIUM 4.5 mmol/L (3.5-5.1); UREA NITROGEN, BLOOD 20 mg/dL (7-18)
[2018-12-05] MEDS ORDERED: FUROSEMIDE 20 MG/2 ML VIAL IV ONE (09:00)
[2018-12-05 11:09] VITALS: BP 138/66
[2018-12-05] MEDS ORDERED: MAGNESIUM SULFATE/D5W 100 ML IV SCH (13:00)
[2018-12-05 15:16] VITALS: BP 138/66
[2018-12-05 15:17] VITALS: BP 132/57
[2018-12-05 15:30] VITALS: BP 140/88
[2018-12-05] MEDS: MAG HYDROX/AL HYDROX/SIMETH 30 ML LIQUID UDC PO PRN (16:40)
[2018-12-05] MEDS ORDERED: METF-440 PO (17:15)
[2018-12-05] MEDS ORDERED: MONT10TA22 PO (17:15)
[2018-12-05] MEDS ORDERED: CETI10TA14 PO (17:15)
[2018-12-05] MEDS ORDERED: CLOT30CR24 TOP (17:15)
[2018-12-05] MEDS ORDERED: AMLO5TAB9 PO (17:15)
[2018-12-05] MEDS ORDERED: GABA-532 PO (17:15)
[2018-12-05] MEDS ORDERED: FAMO20TA8 PO (17:15)
[2018-12-05] MEDS ORDERED: FURO20TA4 PO (17:15)
[2018-12-06] MEDS ORDERED: FUROSEMIDE 20 MG TABLET PO SCH (09:00)
== END 2018-12-05 18:15 | DRG 291 ==
LOC: ER 19:59 → TELE3 23:38 → MEDSURG3 12-02 10:17
PROVIDERS: ADMIT Nurse Practitioner Acute Care; ATTEND Nurse Practitioner Acute Care
DX: I11.0 Hypertensive heart disease with heart failure (principal); G93.41 Metabolic encephalopathy; E44.0 Moderate protein-calorie malnutrition; D68.59 Other primary thrombophilia; I50.33 Acute on chronic diastolic (congestive) heart failure; R53.1 Weakness; R26.2 Difficulty in walking, not elsewhere classified; Z86.73 Personal history of transient ischemic attack (TIA), and cerebral infarction without residual deficits; E78.5 Hyperlipidemia, unspecified; E11.42 Type 2 diabetes mellitus with diabetic polyneuropathy; E11.65 Type 2 diabetes mellitus with hyperglycemia; E66.9 Obesity, unspecified; Z68.34 Body mass index [BMI] 34.0-34.9, adult; R40.2142 Coma scale, eyes open, spontaneous, at arrival to emergency department; R40.2362 Coma scale, best motor response, obeys commands, at arrival to emergency department; R40.2252 Coma scale, best verbal response, oriented, at arrival to emergency department; Z74.09 Other reduced mobility; Z79.84 Long term (current) use of oral hypoglycemic drugs; Z79.02 Long term (current) use of antithrombotics/antiplatelets; K21.9 Gastro-esophageal reflux disease without esophagitis; G93.89 Other specified disorders of brain; K43.9 Ventral hernia without obstruction or gangrene; J45.909 Unspecified asthma, uncomplicated; I70.0 Atherosclerosis of aorta; H54.8 Legal blindness, as defined in USA
CPT/HCPCS: 36415; 70030-TC; 70450; 71045; 83690; 83735; 84100; 84443; 85025; 85651; 85730; 87086; 92526; 92610; 93005; 93307; 94640; 94664; 97110; 97116; 97165; 97530; A4663; C1758; G0378; J0780; J1815; J1940; J2060; J3475; J3490; J3590; J7030

== ENCOUNTER 2018-12-05 18:27 | Inpatient (IN) | payer MEDICARE, MEDICAID ==
[~2018-12-05] VITALS: Ht 170.2 cm; Wt 82.6 kg
[~2018-12-05 18:27] MED LIST changes: +ALBU18HF2 INH; +AMLO2.5T4 PO; +AMLO5TAB9 PO; +AZEL137S7 BNOSTRILS; +CLOT30CR24 TOP; +DEXL60CA3 PO; +DICL100G16 TP; +FAMO20TA8 PO; +FAMO40TA7 PO; +FURO-152 PO; +FURO20TA4 PO; +LIDOC TOP; +NYST15PO4 TP; +OLOP2.5D5 OP; +TOBR5DRO48 EACHEYE
[2018-12-05 18:56] VITALS: BP 141/54
[2018-12-05] MEDS ORDERED: METFORMIN HCL 500 MG TABLET PO ONE (20:00)
[2018-12-05] MEDS ORDERED: GABAPENTIN 100 MG CAPSULE PO ONE (20:00)
[2018-12-05] MEDS ORDERED: GABAPENTIN 100 MG CAPSULE ONE (20:47)
[2018-12-05] MEDS ORDERED: FAMOTIDINE 20 MG TABLET PO ONE (21:00)
[2018-12-05] MEDS: FAMOTIDINE 20 MG TABLET PO SCH (21:00)
[2018-12-05 21:16] VITALS: BP 104/68
[2018-12-06] MEDS: ALBUTEROL SULFATE 1.25 MG/3 ML NEBU NEB PRN ×2 (04:11→22:00)
[2018-12-06] MEDS: IPRATROPIUM BROMIDE 0.5 MG/2.5 ML NEBU NEB PRN ×2 (04:11→21:59)
[2018-12-06 04:40] VITALS: BP 117/50
[2018-12-06 08:05] VITALS: BP 101/46
[2018-12-06] MEDS: FUROSEMIDE 20 MG TABLET PO SCH (08:32)
[2018-12-06] MEDS: METFORMIN HCL 500 MG TABLET PO SCH ×2 (08:32→16:58)
[2018-12-06] MEDS: AMLODIPINE 5 MG TABLET PO SCH (08:34)
[2018-12-06] MEDS: GABAPENTIN 100 MG CAPSULE PO SCH ×3 (08:34→16:58)
[2018-12-06] MEDS: CETIRIZINE HCL 10 MG TABLET PO SCH (08:34)
[2018-12-06] MEDS: CLOTRIMAZOLE 1% CREAM 30 GM TUBE TOP SCH ×2 (08:35→17:03)
[2018-12-06] MEDS: FAMOTIDINE 20 MG TABLET PO SCH (08:37)
[2018-12-06] MEDS ORDERED: MONTELUKAST SODIUM 10 MG TABLET PO SCH (09:00)
[2018-12-06] MEDS ORDERED: CLOTRIMAZOLE 1% CREAM 30 GM TUBE TOP SCH (09:00)
[2018-12-06] MEDS: SUCRALFATE 1 G TABLET PO SCH ×2 (16:57→20:21)
[2018-12-06] MEDS: PANTOPRAZOLE SODIUM 40 MG TABLET.DR PO SCH (16:58)
[2018-12-06] MEDS: MONTELUKAST SODIUM 10 MG TABLET PO SCH (16:58)
[2018-12-06 17:11] VITALS: BP 122/64
[2018-12-06 20:11] VITALS: BP 130/58
[2018-12-07 05:21] VITALS: BP 99/55
[2018-12-07] MEDS: ALBUTEROL SULFATE 1.25 MG/3 ML NEBU NEB PRN ×2 (05:34→11:42)
[2018-12-07] MEDS: IPRATROPIUM BROMIDE 0.5 MG/2.5 ML NEBU NEB PRN ×2 (05:34→11:42)
[2018-12-07] MEDS: PANTOPRAZOLE SODIUM 40 MG TABLET.DR PO SCH ×2 (06:10→16:49)
[2018-12-07] MEDS: SUCRALFATE 1 G TABLET PO SCH ×4 (06:44→20:04)
[2018-12-07 07:48] VITALS: BP 127/53
[2018-12-07] MEDS: AMLODIPINE 5 MG TABLET PO SCH (08:02)
[2018-12-07] MEDS: METFORMIN HCL 500 MG TABLET PO SCH ×2 (08:02→17:05)
[2018-12-07] MEDS: CETIRIZINE HCL 10 MG TABLET PO SCH (08:03)
[2018-12-07] MEDS: GABAPENTIN 100 MG CAPSULE PO SCH ×3 (08:03→16:49)
[2018-12-07] MEDS: FUROSEMIDE 20 MG TABLET PO SCH (08:03)
[2018-12-07] MEDS: CLOTRIMAZOLE 1% CREAM 30 GM TUBE TOP SCH ×2 (08:04→16:49)
[2018-12-07] MEDS ORDERED: FAMOTIDINE 20 MG TABLET PO SCH (09:00)
[2018-12-07] MEDS ORDERED: Z GUARD REMEDY PASTE 57 GM TUBE TOP PRN (15:45)
[2018-12-07 16:14] VITALS: BP 116/53
[2018-12-07] MEDS: MONTELUKAST SODIUM 10 MG TABLET PO SCH (17:06)
[2018-12-07 19:34] VITALS: BP 116/54
[2018-12-08 05:10] VITALS: BP 114/52
[2018-12-08] MEDS: PANTOPRAZOLE SODIUM 40 MG TABLET.DR PO SCH ×2 (06:21→17:20)
[2018-12-08] MEDS: SUCRALFATE 1 G TABLET PO SCH ×4 (06:31→20:07)
[2018-12-08] MEDS: GABAPENTIN 100 MG CAPSULE PO SCH ×3 (08:35→17:20)
[2018-12-08] MEDS: METFORMIN HCL 500 MG TABLET PO SCH ×2 (08:35→17:19)
[2018-12-08] MEDS: FUROSEMIDE 20 MG TABLET PO SCH (08:35)
[2018-12-08] MEDS: AMLODIPINE 5 MG TABLET PO SCH (08:36)
[2018-12-08] MEDS: CETIRIZINE HCL 10 MG TABLET PO SCH (08:36)
[2018-12-08] MEDS: CLOTRIMAZOLE 1% CREAM 30 GM TUBE TOP SCH ×2 (08:37→17:20)
[2018-12-08] MEDS: ALBUTEROL SULFATE 1.25 MG/3 ML NEBU NEB PRN (09:03)
[2018-12-08] MEDS: IPRATROPIUM BROMIDE 0.5 MG/2.5 ML NEBU NEB PRN (09:03)
[2018-12-08 15:48] VITALS: BP 128/55
[2018-12-08] MEDS: MONTELUKAST SODIUM 10 MG TABLET PO SCH (17:19)
[2018-12-08] MEDS: GUAIFENESIN/DEXTROMETHORPHAN 5 ML UDC PO PRN (17:22)
[2018-12-08 19:53] VITALS: BP 105/51
[2018-12-09] MEDS: GUAIFENESIN/DEXTROMETHORPHAN 5 ML UDC PO PRN ×2 (00:58→08:34)
[2018-12-09] MEDS: IPRATROPIUM BROMIDE 0.5 MG/2.5 ML NEBU NEB PRN (02:49)
[2018-12-09] MEDS: ALBUTEROL SULFATE 1.25 MG/3 ML NEBU NEB PRN (02:50)
[2018-12-09 05:11] VITALS: BP 111/42
[2018-12-09] MEDS: PANTOPRAZOLE SODIUM 40 MG TABLET.DR PO SCH ×2 (06:02→16:37)
[2018-12-09] MEDS: SUCRALFATE 1 G TABLET PO SCH ×4 (06:33→20:59)
[2018-12-09] MEDS: GABAPENTIN 100 MG CAPSULE PO SCH ×3 (08:25→16:36)
[2018-12-09] MEDS: METFORMIN HCL 500 MG TABLET PO SCH ×2 (08:25→17:00)
[2018-12-09] MEDS: FUROSEMIDE 20 MG TABLET PO SCH (08:25)
[2018-12-09] MEDS: CETIRIZINE HCL 10 MG TABLET PO SCH (08:25)
[2018-12-09] MEDS: CLOTRIMAZOLE 1% CREAM 30 GM TUBE TOP SCH ×2 (08:26→16:38)
[2018-12-09] MEDS: AMLODIPINE 5 MG TABLET PO SCH (08:26)
[2018-12-09 08:37] VITALS: BP 131/57
[2018-12-09 15:58] VITALS: BP 112/52
[2018-12-09] MEDS: MONTELUKAST SODIUM 10 MG TABLET PO SCH (17:00)
[2018-12-09 20:38] VITALS: BP 133/64
[2018-12-09] MEDS: DOCUSATE SODIUM 100 MG CAPSULE PO SCH (20:59)
[2018-12-10 05:55] VITALS: BP 118/65
[2018-12-10] MEDS: SUCRALFATE 1 G TABLET PO SCH ×4 (06:45→20:37)
[2018-12-10] MEDS: PANTOPRAZOLE SODIUM 40 MG TABLET.DR PO SCH ×2 (06:45→17:17)
[2018-12-10 08:13] VITALS: BP 130/64
[2018-12-10] MEDS: GABAPENTIN 100 MG CAPSULE PO SCH ×3 (08:35→17:18)
[2018-12-10] MEDS: METFORMIN HCL 500 MG TABLET PO SCH ×2 (08:35→17:17)
[2018-12-10] MEDS: FUROSEMIDE 20 MG TABLET PO SCH (08:35)
[2018-12-10] MEDS: DOCUSATE SODIUM 100 MG CAPSULE PO SCH ×2 (08:36→20:37)
[2018-12-10] MEDS: AMLODIPINE 5 MG TABLET PO SCH (08:36)
[2018-12-10] MEDS: CETIRIZINE HCL 10 MG TABLET PO SCH (08:36)
[2018-12-10] MEDS: CLOTRIMAZOLE 1% CREAM 30 GM TUBE TOP SCH ×2 (08:36→17:18)
[2018-12-10] MEDS: GUAIFENESIN/DEXTROMETHORPHAN 5 ML UDC PO PRN ×2 (08:45→14:33)
[2018-12-10] MEDS ORDERED: TRIAMCINOLONE ACETONIDE 40 MG/1 ML VIAL IM ONE (14:30)
[2018-12-10] MEDS ORDERED: LIDOCAINE-MPF 1% 5 ML AMPUL MC PRN (14:30)
[2018-12-10] MEDS: MONTELUKAST SODIUM 10 MG TABLET PO SCH (17:18)
[2018-12-10 18:14] VITALS: BP 117/56
[2018-12-10 20:29] VITALS: BP 116/60
[2018-12-11 06:16] VITALS: BP 128/57
[2018-12-11] MEDS: PANTOPRAZOLE SODIUM 40 MG TABLET.DR PO SCH ×2 (07:06→17:01)
[2018-12-11] MEDS: SUCRALFATE 1 G TABLET PO SCH ×4 (07:06→20:48)
[2018-12-11] MEDS: CETIRIZINE HCL 10 MG TABLET PO SCH (08:24)
[2018-12-11] MEDS: FUROSEMIDE 20 MG TABLET PO SCH (08:24)
[2018-12-11] MEDS: GABAPENTIN 100 MG CAPSULE PO SCH ×3 (08:24→17:01)
[2018-12-11] MEDS: DOCUSATE SODIUM 100 MG CAPSULE PO SCH ×2 (08:24→20:48)
[2018-12-11] MEDS: METFORMIN HCL 500 MG TABLET PO SCH ×2 (08:24→17:01)
[2018-12-11] MEDS: GUAIFENESIN/DEXTROMETHORPHAN 5 ML UDC PO PRN (08:26)
[2018-12-11] MEDS: CLOTRIMAZOLE 1% CREAM 30 GM TUBE TOP SCH ×2 (08:27→17:06)
[2018-12-11] MEDS: AMLODIPINE 5 MG TABLET PO SCH (08:31)
[2018-12-11 16:39] VITALS: BP 132/51
[2018-12-11] MEDS: MONTELUKAST SODIUM 10 MG TABLET PO SCH (17:03)
[2018-12-11 21:33] VITALS: BP 135/64
[2018-12-12 05:35] VITALS: BP 123/47
[2018-12-12] MEDS: SUCRALFATE 1 G TABLET PO SCH ×4 (06:51→22:03)
[2018-12-12] MEDS: PANTOPRAZOLE SODIUM 40 MG TABLET.DR PO SCH ×2 (06:51→17:31)
[2018-12-12 08:19] LABS: BASOPHILS % (AUTO) 0.1 % (0.0-2.0); HEMATOCRIT 40.1 % (31.2-41.9); HEMOGLOBIN 13.4 g/dL (10.9-14.3); LYMPHOCYTES # (AUTO) 1.1 K/uL (20.0-40.0); LYMPHOCYTES % (AUTO) 9.3 % (20.5-51.5); MEAN CORPUSCULAR HGB CONC 34 g/dL (32.3-35.6); MEAN CORPUSCULAR VOLUME 83.7 fL (75.5-95.3); MONOCYTES # (AUTO) 0.5 K/uL (2.0-10.0); MONOCYTES % (AUTO) 4.8 % (0.0-11.0); NEUTROPHILS # (AUTO) 9.8 K/uL (1.8-8.9); NEUTROPHILS % (AUTO) 85.8 % (38.5-71.5); PLATELET COUNT (AUTO) 298 K/uL (179-408); WHITE BLOOD COUNT (AUTO) 11.4 K/uL (3.8-11.8)
[2018-12-12 08:45] LABS: ALANINE AMINOTRANSFERASE 12 U/L (14-59); ALKALINE PHOSPHATASE 66 U/L (50-136); ASPARTATE AMINOTRANSFERASE 5 U/L (15-37); BILIRUBIN,TOTAL 0.3 mg/dL (0.2-1.0); CARBON DIOXIDE 29 mmol/L (21-32); CHLORIDE 102 mmol/L (98-107); CREATININE 1.1 mg/dL (0.6-1.3); GLUCOSE 130 mg/dL (74-106); MAGNESIUM 1.9 mg/dL (1.8-2.4); PHOSPHOROUS 3.4 mg/dL (2.5-4.9); POTASSIUM 4.1 mmol/L (3.5-5.1); TOTAL PROTEIN, SERUM 6.9 g/dL (6.4-8.2); UREA NITROGEN, BLOOD 34 mg/dL (7-18)
[2018-12-12] MEDS: AMLODIPINE 5 MG TABLET PO SCH (09:00)
[2018-12-12] MEDS: CETIRIZINE HCL 10 MG TABLET PO SCH (09:27)
[2018-12-12] MEDS: FUROSEMIDE 20 MG TABLET PO SCH (09:27)
[2018-12-12] MEDS: GABAPENTIN 100 MG CAPSULE PO SCH ×3 (09:27→17:31)
[2018-12-12] MEDS: METFORMIN HCL 500 MG TABLET PO SCH ×2 (09:27→17:31)
[2018-12-12] MEDS: DOCUSATE SODIUM 100 MG CAPSULE PO SCH ×2 (09:27→22:03)
[2018-12-12] MEDS: CLOTRIMAZOLE 1% CREAM 30 GM TUBE TOP SCH ×2 (09:28→17:33)
[2018-12-12] MEDS: GUAIFENESIN/DEXTROMETHORPHAN 5 ML UDC PO PRN (09:28)
[2018-12-12] MEDS: GUAIFENESIN LA 600 MG TABLET.SA PO SCH ×2 (09:30→22:03)
[2018-12-12] MEDS: FLUTICASONE PROP NASAL SPRAY 16 GM BOTTLE NS SCH (09:37)
[2018-12-12 09:46] VITALS: BP 116/47
[2018-12-12 16:00] VITALS: BP 134/61
[2018-12-12] MEDS: MONTELUKAST SODIUM 10 MG TABLET PO SCH (17:31)
[2018-12-12 20:22] VITALS: BP 156/60
[2018-12-13 04:00] VITALS: BP 138/42
[2018-12-13 04:52] LABS: *BILIRUBIN,URIN NEGATIVE (NEGATIVE); *BLOOD, URINE NEGATIVE (NEGATIVE); *CLARITY,URINE CLEAR (CLEAR); *COLOR,URINE YELLOW (YELLOW); *KETONES,URINE NEGATIVE (NEGATIVE); *UROBILINOGEN,URINE 0.2 E.U./dl (NORMAL); LEUKOCYTE ESTERASE ,URINE 2+ (NEGATIVE); NITRITE, URINE NEGATIVE (NEGATIVE); PH,URINE 5.5 (5.0-8.0); UGLUCOSE NEGATIVE (NEGATIVE)
[2018-12-13 05:14] LABS: BACTERIA,URINE FEW /HPF (NONE SEEN); RBC,URINE NONE SEEN /HPF (0-3); SQUAMOUS EPITHELIAL CELL,UR MANY /HPF (NONE SEEN); WBC,URINE 20-50 /HPF (0-3)
[2018-12-13] MEDS: PANTOPRAZOLE SODIUM 40 MG TABLET.DR PO SCH ×2 (06:36→16:58)
[2018-12-13] MEDS: SUCRALFATE 1 G TABLET PO SCH ×4 (06:36→20:24)
[2018-12-13] MEDS: GUAIFENESIN/DEXTROMETHORPHAN 5 ML UDC PO PRN (06:40)
[2018-12-13 08:25] VITALS: BP 141/52
[2018-12-13] MEDS: METFORMIN HCL 500 MG TABLET PO SCH ×2 (08:27→17:18)
[2018-12-13] MEDS: DOCUSATE SODIUM 100 MG CAPSULE PO SCH ×2 (08:28→20:24)
[2018-12-13] MEDS: FUROSEMIDE 20 MG TABLET PO SCH (08:28)
[2018-12-13] MEDS: FLUTICASONE PROP NASAL SPRAY 16 GM BOTTLE NS SCH (08:28)
[2018-12-13] MEDS: GUAIFENESIN LA 600 MG TABLET.SA PO SCH ×2 (08:29→20:24)
[2018-12-13] MEDS: AMLODIPINE 5 MG TABLET PO SCH (08:29)
[2018-12-13] MEDS: GABAPENTIN 100 MG CAPSULE PO SCH ×3 (08:29→16:57)
[2018-12-13] MEDS: CETIRIZINE HCL 10 MG TABLET PO SCH (08:29)
[2018-12-13] MEDS: CLOTRIMAZOLE 1% CREAM 30 GM TUBE TOP SCH ×2 (08:30→16:58)
[2018-12-13 15:31] VITALS: BP 132/56
[2018-12-13] MEDS: MONTELUKAST SODIUM 10 MG TABLET PO SCH (17:18)
[2018-12-13 21:06] VITALS: BP 125/53
[2018-12-14 04:00] VITALS: BP 135/41
[2018-12-14] MEDS: PANTOPRAZOLE SODIUM 40 MG TABLET.DR PO SCH ×2 (06:24→17:04)
[2018-12-14] MEDS: SUCRALFATE 1 G TABLET PO SCH ×4 (06:33→20:27)
[2018-12-14 07:39] VITALS: BP 117/45
[2018-12-14] MEDS: DOCUSATE SODIUM 100 MG CAPSULE PO SCH ×2 (08:24→20:27)
[2018-12-14] MEDS: METFORMIN HCL 500 MG TABLET PO SCH ×2 (08:24→17:07)
[2018-12-14] MEDS: FUROSEMIDE 20 MG TABLET PO SCH (08:24)
[2018-12-14] MEDS: GABAPENTIN 100 MG CAPSULE PO SCH ×3 (08:25→17:04)
[2018-12-14] MEDS: FLUTICASONE PROP NASAL SPRAY 16 GM BOTTLE NS SCH (08:25)
[2018-12-14] MEDS: AMLODIPINE 5 MG TABLET PO SCH (08:26)
[2018-12-14] MEDS: CETIRIZINE HCL 10 MG TABLET PO SCH (08:26)
[2018-12-14] MEDS: NITROFURANTOIN/NITROFURAN MAC 100 MG CAPSULE PO SCH ×2 (09:58→20:27)
[2018-12-14] MEDS: CLOTRIMAZOLE 1% CREAM 30 GM TUBE TOP SCH ×2 (09:59→17:05)
[2018-12-14] MEDS: GUAIFENESIN LA 600 MG TABLET.SA PO SCH ×2 (10:02→20:27)
[2018-12-14 16:25] VITALS: BP 172/58
[2018-12-14] MEDS: MONTELUKAST SODIUM 10 MG TABLET PO SCH (17:14)
[2018-12-14 19:34] VITALS: BP 96/50
[2018-12-15 05:32] VITALS: BP 111/42
[2018-12-15] MEDS: SUCRALFATE 1 G TABLET PO SCH ×4 (06:11→20:43)
[2018-12-15] MEDS: PANTOPRAZOLE SODIUM 40 MG TABLET.DR PO SCH ×2 (06:11→17:13)
[2018-12-15 07:48] VITALS: BP 103/52
[2018-12-15] MEDS: GABAPENTIN 100 MG CAPSULE PO SCH ×3 (08:00→17:13)
[2018-12-15] MEDS: NITROFURANTOIN/NITROFURAN MAC 100 MG CAPSULE PO SCH ×2 (08:00→20:43)
[2018-12-15] MEDS: CETIRIZINE HCL 10 MG TABLET PO SCH (08:00)
[2018-12-15] MEDS: AMLODIPINE 5 MG TABLET PO SCH (08:00)
[2018-12-15] MEDS: FUROSEMIDE 20 MG TABLET PO SCH (08:02)
[2018-12-15] MEDS: METFORMIN HCL 500 MG TABLET PO SCH ×2 (08:02→17:13)
[2018-12-15] MEDS: DOCUSATE SODIUM 100 MG CAPSULE PO SCH ×2 (08:02→20:44)
[2018-12-15] MEDS: FLUTICASONE PROP NASAL SPRAY 16 GM BOTTLE NS SCH (08:02)
[2018-12-15] MEDS: CLOTRIMAZOLE 1% CREAM 30 GM TUBE TOP SCH ×2 (08:03→17:13)
[2018-12-15 16:22] VITALS: BP 130/59
[2018-12-15] MEDS: MONTELUKAST SODIUM 10 MG TABLET PO SCH (17:13)
[2018-12-15 19:30] VITALS: BP 120/60
[2018-12-15] MEDS: GUAIFENESIN/DEXTROMETHORPHAN 5 ML UDC PO PRN (21:11)
[2018-12-15] MEDS: ALBUTEROL SULFATE 1.25 MG/3 ML NEBU NEB PRN (21:17)
[2018-12-15] MEDS: IPRATROPIUM BROMIDE 0.5 MG/2.5 ML NEBU NEB PRN (21:17)
[2018-12-16 05:15] VITALS: BP 128/48
[2018-12-16] MEDS: SUCRALFATE 1 G TABLET PO SCH ×4 (06:38→20:31)
[2018-12-16] MEDS: PANTOPRAZOLE SODIUM 40 MG TABLET.DR PO SCH ×2 (06:38→17:00)
[2018-12-16] MEDS: DOCUSATE SODIUM 100 MG CAPSULE PO SCH ×2 (08:38→20:31)
[2018-12-16] MEDS: PREGABALIN 25 MG CAPSULE PO SCH ×3 (08:39→16:58)
[2018-12-16] MEDS: FUROSEMIDE 20 MG TABLET PO SCH (08:39)
[2018-12-16] MEDS: NITROFURANTOIN/NITROFURAN MAC 100 MG CAPSULE PO SCH ×2 (08:39→20:31)
[2018-12-16] MEDS: METFORMIN HCL 500 MG TABLET PO SCH ×2 (08:40→17:00)
[2018-12-16] MEDS: AMLODIPINE 5 MG TABLET PO SCH (08:40)
[2018-12-16] MEDS: CLOTRIMAZOLE 1% CREAM 30 GM TUBE TOP SCH ×2 (08:41→16:59)
[2018-12-16] MEDS: FLUTICASONE PROP NASAL SPRAY 16 GM BOTTLE NS SCH (08:41)
[2018-12-16] MEDS: CETIRIZINE HCL 10 MG TABLET PO SCH (08:41)
[2018-12-16] MEDS: GUAIFENESIN/DEXTROMETHORPHAN 5 ML UDC PO PRN ×2 (11:45→20:36)
[2018-12-16 16:41] VITALS: BP 110/47
[2018-12-16] MEDS: MONTELUKAST SODIUM 10 MG TABLET PO SCH (17:00)
[2018-12-16 21:33] VITALS: BP 132/64
[2018-12-17 04:00] VITALS: BP 97/43
[2018-12-17] MEDS: SUCRALFATE 1 G TABLET PO SCH ×4 (06:39→20:54)
[2018-12-17] MEDS: PANTOPRAZOLE SODIUM 40 MG TABLET.DR PO SCH ×2 (06:39→17:35)
[2018-12-17 07:27] VITALS: BP 100/45
[2018-12-17] MEDS: PREGABALIN 25 MG CAPSULE PO SCH ×3 (08:37→17:35)
[2018-12-17] MEDS: DOCUSATE SODIUM 100 MG CAPSULE PO SCH ×2 (08:37→20:54)
[2018-12-17] MEDS: METFORMIN HCL 500 MG TABLET PO SCH ×2 (08:37→17:35)
[2018-12-17] MEDS: FUROSEMIDE 20 MG TABLET PO SCH (08:38)
[2018-12-17] MEDS: FLUTICASONE PROP NASAL SPRAY 16 GM BOTTLE NS SCH (08:38)
[2018-12-17] MEDS: CETIRIZINE HCL 10 MG TABLET PO SCH (08:39)
[2018-12-17] MEDS: AMLODIPINE 5 MG TABLET PO SCH (08:40)
[2018-12-17] MEDS: CLOTRIMAZOLE 1% CREAM 30 GM TUBE TOP SCH ×2 (08:40→17:36)
[2018-12-17] MEDS ORDERED: ASPIRIN/ACETAMINOPHEN/CAFFEINE TABLET PO PRN (09:30)
[2018-12-17 16:37] VITALS: BP 155/62
[2018-12-17] MEDS: MONTELUKAST SODIUM 10 MG TABLET PO SCH (17:35)
[2018-12-17 20:15] VITALS: BP 109/54
[2018-12-17] MEDS: GUAIFENESIN/DEXTROMETHORPHAN 5 ML UDC PO PRN (23:05)
[2018-12-18 04:00] VITALS: BP 97/35
[2018-12-18] MEDS: PANTOPRAZOLE SODIUM 40 MG TABLET.DR PO SCH (06:29)
[2018-12-18] MEDS: SUCRALFATE 1 G TABLET PO SCH ×2 (06:30→12:14)
[2018-12-18 08:05] VITALS: BP 108/54
[2018-12-18] MEDS ORDERED: ATORVASTATIN 10 MG TABLET PO SCH ×2 (08:21→21:00)
[2018-12-18] MEDS: FUROSEMIDE 20 MG TABLET PO SCH (08:46)
[2018-12-18] MEDS: PREGABALIN 25 MG CAPSULE PO SCH ×2 (08:46→12:15)
[2018-12-18] MEDS: DOCUSATE SODIUM 100 MG CAPSULE PO SCH (08:46)
[2018-12-18] MEDS: METFORMIN HCL 500 MG TABLET PO SCH (08:46)
[2018-12-18] MEDS: CETIRIZINE HCL 10 MG TABLET PO SCH (08:46)
[2018-12-18] MEDS: FLUTICASONE PROP NASAL SPRAY 16 GM BOTTLE NS SCH (08:47)
[2018-12-18 08:48] VITALS: BP 108/54
[2018-12-18] MEDS: AMLODIPINE 5 MG TABLET PO SCH (08:48)
[2018-12-18] MEDS: CLOTRIMAZOLE 1% CREAM 30 GM TUBE TOP SCH (08:49)
[2018-12-18] MEDS ORDERED: ASPIRIN EC 81 MG TABLET.DR PO SCH (09:00)
[2018-12-18] MEDS: GUAIFENESIN/DEXTROMETHORPHAN 5 ML UDC PO PRN (15:49)
== END 2018-12-18 15:45 | disposition home health service (06) | DRG 291 ==
PROVIDERS: ADMIT Physical Medicine & Rehabilitation Pain Medicine; ATTEND Physical Medicine & Rehabilitation Pain Medicine
DX: I11.0 Hypertensive heart disease with heart failure (principal); G93.41 Metabolic encephalopathy; D68.59 Other primary thrombophilia; E44.0 Moderate protein-calorie malnutrition; N39.0 Urinary tract infection, site not specified; I50.33 Acute on chronic diastolic (congestive) heart failure; E11.9 Type 2 diabetes mellitus without complications; E66.9 Obesity, unspecified; E78.5 Hyperlipidemia, unspecified; G62.9 Polyneuropathy, unspecified; H54.8 Legal blindness, as defined in USA; K21.9 Gastro-esophageal reflux disease without esophagitis; K43.9 Ventral hernia without obstruction or gangrene; Z86.73 Personal history of transient ischemic attack (TIA), and cerebral infarction without residual deficits; Z68.28 Body mass index [BMI] 28.0-28.9, adult; F03.90 Unspecified dementia, unspecified severity, without behavioral disturbance, psychotic disturbance, mood disturbance, and anxiety; G89.29 Other chronic pain; M19.011 Primary osteoarthritis, right shoulder; M17.11 Unilateral primary osteoarthritis, right knee; R26.2 Difficulty in walking, not elsewhere classified; R53.81 Other malaise; M54.12 Radiculopathy, cervical region; Z88.0 Allergy status to penicillin; Z91.048 Other nonmedicinal substance allergy status; R05 Cough
CPT/HCPCS: 36415; 72040; 83735; 84100; 85025; 87086; 94640; 94664; A9150; J3301; J3490; J3535; J3590